=== PATIENT | male | born 1960 | race Caucasian/White ===

== ENCOUNTER 2019-07-18 11:50 | Emergency (ER) | payer BC ==
[2019-07-18 12:05] VITALS: O2SAT 98
[2019-07-18] MEDS ORDERED: Sodium Chloride 0.9% 1000 ML 1,000 ML IV STA (12:20)
[2019-07-18] MEDS ORDERED: Sodium Chloride 0.9% 1000 ML 1,000 ML ONE ×2 (12:28→12:31)
[2019-07-18 12:37] LABS: Absolute Neutrophil Ct (ANC) 8.16 (1.4-6.9); BASOPHIL % 0.2 % (0.0-0.4); Basophil (Absolute #) 0.02 (0-0.4); Eosinophil % 0.3 % (0.00-5.0); Eosinophil (Absolute #) 0.03 (0-0.5); Hematocrit 49.6 % (42-50); Hemoglobin 17.3 gm/dl (12.5-18.0); Lymphocyte (Absolute #) 1.95 (1.0-4.6); Lymphocytes % 18.2 % (24.0-44.0); Mean Cell Volume 96.7 fl (78-100); Mean Corpuscular Hemoglobin 33.7 pg (26-32); Mean Corpuscular Hgb Concent. 34.9 g/dl (32-36); Mean Platelet Volume 10.4 fl (6-9.5); Monocyte (Absolute #) 0.54 (0.0-1.3); Neutrophil % 76.3 % (36.0-66.0); Platelet Count 222 K/mm3 (150-450); Red Blood Count 5.13 M/mm3 (4.1-5.6); Red Cell Distribution Width 12.9 % (11.5-14.0); White Blood Count 10.7 K/mm3 (4.0-10.5)
[2019-07-18 12:50] LABS: ALBUMIN 4.8 g/dL (3.5-5.0); ALKALINE PHOSPHATASE 50 U/L (38-126); ANION GAP 16.7 MEQ/L (5-15); BLOOD UREA NITROGEN 13 mg/dL (9-20); CHLORIDE 104 mmol/L (98-107); Calcium 9.9 mg/dL (8.4-10.2); Carbon Dioxide 23 mmol/L (22-30); Creatinine 1 0.76 mg/dL (0.66-1.25); Glucose 118 mg/dL (74-106); SGOT/AST 26 U/L (17-59); SGPT/ALT 24 U/L (0-50); SODIUM 139 mmol/L (137-145)
--- NOTE | 2019-07-18 13:38 | ERPHSYRPT ---
- History of Present Illness Time Seen by Provider: 07/18/19 12:20 Source: patient, family Exam Limitations: no limitations Patient Subjective Stated Complaint: HERE FOR RINGING IN EARS, LIGHTHEAEDED, PRESSURE IN EARS FOR 3 DAYS NO, HE THINKS HES B/P WAS HIGH AND TOOK ONE OF HES WIFES B/P PILLS Triage Nursing Assessment: PT WALKED IN ALERT, RESP EASY ,SKIN W/D/P. 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 He complained of a headache and dizziness which started Friday morning he had a near syncopal episode at that time he has noted vertigo he has had no nausea or vomiting he does have chronic tinnitus. Blood pressure was 174/94 his gave him one of her losartan 50s and his blood pressure was 142/86 on arrival.. Prior Episodes: no prior history Timing/Duration: day(s) (3) Precipitating Factors: none Context: standing Allergies/Adverse Reactions: No Known Drug Allergies Allergy (Unverified 07/18/19 12:09) Hx Influenza Vaccination/Date Given: No Hx Pneumococcal Vaccination/Date Given: No Immunizations Up to Date: Yes - Past Medical History Pertinent Past Medical History: No - Past Surgical History Past Surgical History: No - Social History Smoking Status: Current every day smoker Exposure to second hand smoke: Yes Drug Use: none Patient Lives Alone: No - Review of Systems Constitutional: No Fever, No Chills Eyes: No Symptoms Ears, Nose, & Throat: No Symptoms Respiratory: No Cough, No Dyspnea Cardiac: No Chest Pain, No Edema, No Syncope Abdominal/Gastrointestinal: No Abdominal Pain, No Nausea, No Vomiting, No Diarrhea Genitourinary Symptoms: No Dysuria Musculoskeletal: No Back Pain, No Neck Pain Skin: No Rash Neurological: Dizziness, Headache, Vertigo, No Focal Weakness, No Sensory Changes Psychological: No Symptoms Endocrine: No Symptoms All Other Systems: Reviewed and Negative Physical Exam - Nursing Vital Signs Nursing Vital Signs: Initial Vital Signs Temperature 97.8 F 07/18/19 11:55 Pulse Rate 110 H 07/18/19 11:55 Blood Pressure 147/86 07/18/19 11:55 O2 Sat by Pulse Oximetry 98 07/18/19 11:55 Pain Scale Pain Intensity 0 - [place] Coma Scale Best Eye Response ([place]): (4) open spontaneously Best Verbal Response ([place]): (5) oriented Best Motor Response ([place]): (6) obeys commands [place] Total: 15 - Physical Exam Eye Exam: bilateral eye: normal inspection, PERRL, EOMI Ears, Nose, Throat Exam: pharynx normal, moist mucous membranes, other ( bilateral cerumen impaction) Neck Exam: normal inspection Respiratory: normal breath sounds, lungs clear, No chest tenderness, No respiratory distress Cardiovascular: regular rate/rhythm, capillary refill <2 sec, No murmur, No pulse deficit Gastrointestinal: soft, No tenderness, No distention, No mass Back Exam: normal inspection, normal range of motion, No CVA tenderness, No vertebral tenderness Extremity Exam: normal inspection, normal range of motion, pelvis stable, No tenderness Peripheral Pulses: carotid (R): 2+, carotid (L): 2+ 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, 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, 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 Exam: No normal hearing (patient has bilateral cerumen impaction) DTR: knee (R): 2+, knee (L): 2+ Skin Exam: normal color, warm, dry SpO2 Interpretation: normal SpO2: 98 O2 Delivery: Room Air - Course Nursing assessment & vital signs reviewed: Yes EKG Interpreted by Me: RATE, Sinus Rhythm, Sinus Tach (105), Non-specific ST Changes - Radiology Exams Chest X-ray Interpretation: Interpreted by me, Negative - CT Exams Head CT Interpretation: Negative Ordered Tests: Active Orders 24 hr Category Date Time Status EKG-ER Only STAT Care 07/18/19 12:20 Active IV Insertion STAT Care 07/18/19 12:20 Active Orthostatic Vital Signs STAT Care 07/18/19 12:20 Active CHEST 1 VIEW (PORTABLE) Stat Exams 07/18/19 12:21 Taken HEAD WITHOUT CONTRAST [CT] Stat Exams 07/18/19 12:23 Taken CBC W DIFF Stat Lab 07/18/19 12:30 Completed CMP Stat Lab 07/18/19 12:30 Completed TROPONIN Q3H Lab 07/18/19 12:30 Completed TROPONIN Q3H Lab 07/18/19 15:30 Ordered TROPONIN Q3H Lab 07/18/19 18:30 Ordered TROPONIN Q3H Lab 07/18/19 21:30 Ordered TROPONIN Q3H Lab 07/19/19 00:30 Ordered UA W/RFX UR CULTURE Stat Lab 07/18/19 12:21 Ordered Medication Summary Discontinued Medications Generic Name Dose Route Start Last Admin Trade Name Neli PRN Reason Stop Dose Admin Sodium Chloride 1,000 mls @ 999 mls/hr 07/18/19 12:20 07/18/19 12:35 Sodium Chloride 0.9% 1000 Ml IV 07/18/19 13:20 999 mls/hr .Q1H1M STA Administration Sodium Chloride Confirm 07/18/19 12:28 Sodium Chloride 0.9% 1000 Ml Administered 07/18/19 12:29 Dose 1,000 mls @ ud .ROUTE .STK-MED ONE Sodium Chloride Confirm 07/18/19 12:31 Sodium Chloride 0.9% 1000 Ml Administered 07/18/19 12:32 Dose 1,000 mls @ ud .ROUTE .STK-MED ONE Lab/Rad Data: Laboratory Result Diagrams 07/18/19 12:30 07/18/19 12:30 Laboratory Results 07/18/19 07/18/19 07/18/19 Range/Units 12:30 12:30 12:30 WBC 10.7 H (4.0-10.5) K/mm3 RBC 5.13 (4.1-5.6) M/mm3 Hgb 17.3 (12.5-18.0) gm/dl Hct 49.6 (42-50) % MCV 96.7 (78-100) fl MCH 33.7 H (26-32) pg MCHC 34.9 (32-36) g/dl RDW 12.9 (11.5-14.0) % Plt Count 222 (150-450) K/mm3 MPV 10.4 H (6-9.5) fl Gran % 76.3 H (36.0-66.0) % Eos # (Auto) 0.03 (0-0.5) Absolute Lymphs (auto) 1.95 (1.0-4.6) Absolute Monos (auto) 0.54 (0.0-1.3) Lymphocytes % 18.2 L (24.0-44.0) % Monocytes % 5.0 (0.0-12.0) % Eosinophils % 0.3 (0.00-5.0) % Basophils % 0.2 (0.0-0.4) % Absolute Granulocytes 8.16 H (1.4-6.9) Basophils # 0.02 (0-0.4) Sodium 139 (137-145) mmol/L Potassium 4.0 (3.5-5.1) mmol/L Chloride 104 (98-107) mmol/L Carbon Dioxide 23 (22-30) mmol/L Anion Gap 16.7 H (5-15) MEQ/L BUN 13 (9-20) mg/dL Creatinine 0.76 (0.66-1.25) mg/dL Estimated GFR > 60.0 ML/MIN Glucose 118 H (74-106) mg/dL Calcium 9.9 (8.4-10.2) mg/dL Total Bilirubin 0.90 (0.2-1.3) mg/dL AST 26 (17-59) U/L ALT 24 (0-50) U/L Alkaline Phosphatase 50 (38-126) U/L Troponin I < 0.012 (0.000-0.034) ng/mL Serum Total Protein 8.0 (6.3-8.2) g/dL Albumin 4.8 (3.5-5.0) g/dL - Progress Progress: unchanged - Departure Departure Disposition: Home Clinical Impression: Labyrinthitis, Hypertension Condition: Stable Critical Care Time: No Referrals: CHRISTINE INIGUEZ MD [Primary Care Provider] - Additional Instructions: patient instructed to get Cerumenex to soften up his ear wax and then see his family doctor for irrigation. Prescriptions: Losartan Potassium 50 mg [Cozaar 50 MG] 50 mg PO DAILY 30 Days #30 tablet Meclizine HCl 25 mg [Antivert 25 mg] 25 mg PO TID 5 Days #15 tablet
[2019-07-18 13:43] VITALS: BP 135/87; PULSE 85
--- NOTE | 2019-07-18 21:13 | XRAY ---
Indication: Dizziness. Comparison: None Portable apical lordotic chest clear with incidental tiny right midlung calcified granuloma. Heart is not enlarged with tiny subcarinal calcified node. Bony thorax intact. Impression: Nonacute chest. Evidence for old granulomatous disease.
--- NOTE | 2019-07-18 21:13 | XRAY ---
Indication: Dizziness. Multiple contiguous axial images obtained through the head without contrast. Comparison: None. Normal appearing brain parenchyma, ventricles, and bony calvarium. Tiny right ethmoid sinus osteoma. Remaining visualized paranasal sinuses and mastoid air cells are clear. Impression: Normal CT head without contrast exam. Comment: Preliminary interpretation was made by [facility]. No critical discrepancy. CTDI 55.08
== END 2019-07-18 14:15 | disposition home or self-care (01) ==
LOC: ED 11:50
DX: H83.09 Labyrinthitis, unspecified ear (principal); I10 Essential (primary) hypertension
CPT/HCPCS: 36000; 36415; 70450; 71045; 80053; 84484; 85025; 93005; 96360; 99284

== ENCOUNTER 2020-07-14 15:19 | Emergency (ER) | payer BC ==
[2020-07-14 15:53] LABS: Absolute Neutrophil Ct (ANC) 5.64 (1.4-6.9); BASOPHIL % 0.1 % (0.0-0.4); Basophil (Absolute #) 0.01 (0-0.4); Eosinophil % 0.8 % (0.00-5.0); Eosinophil (Absolute #) 0.07 (0-0.5); Hematocrit 50.4 % (42-50); Hemoglobin 17.6 gm/dl (12.5-18.0); Lymphocytes % 30.3 % (24.0-44.0); Mean Cell Volume 96.9 fl (78-100); Mean Corpuscular Hemoglobin 33.8 pg (26-32); Mean Corpuscular Hgb Concent. 34.9 g/dl (32-36); Mean Platelet Volume 10.1 fl (7.5-11.0); Monocyte (Absolute #) 0.71 (0.0-1.3); Monocytes % 7.7 % (0.0-12.0); Neutrophil % 61.1 % (36.0-66.0); Platelet Count 254 K/mm3 (150-450); Red Cell Distribution Width 12.7 % (11.5-14.0); White Blood Count 9.2 K/mm3 (4.0-10.5)
[2020-07-14 16:10] LABS: ALBUMIN 4.9 g/dL (3.5-5.0); ALKALINE PHOSPHATASE 55 U/L (38-126); ANION GAP 15.3 MEQ/L (5-15); BLOOD UREA NITROGEN 13 mg/dL (9-20); CHLORIDE 104 mmol/L (98-107); Calcium 9.8 mg/dL (8.4-10.2); Carbon Dioxide 22 mmol/L (22-30); Creatinine 1 0.83 mg/dL (0.66-1.25); EST GLOMERULAR FILTRATION RATE > 60.0 ML/MIN; Glucose 128 mg/dL (74-106); Potassium 4.1 mmol/L (3.5-5.1); SGOT/AST 27 U/L (17-59); SGPT/ALT 27 U/L (0-50); SODIUM 137 mmol/L (137-145)
--- NOTE | 2020-07-14 16:27 | ERPHSYRPT ---
- History of Present Illness Time Seen by Provider: 07/14/20 15:30 Source: patient, family Exam Limitations: no limitations Patient Subjective Stated Complaint: " I have been dizzy and lightheaded since Friday and it's not getting any better. I had the same issue last year and it was because I had fluid in my ears." Triage Nursing Assessment: Pt presents to ER with complaints of dizziness and lightheadedness. Pt is alert and oriented x3 able to ambulate without difficulty. States symptoms started on Friday and hasn't got any better. Pt denies headache, nausea, vomiting, diarrhea, shortness of breath, cough, or any pain. Pt skin is pink, warm, and dry. Ears appear waxy. PERRL. Stregth and pulses present x 4 extremtiites. No facial droop or slurred speech. Physician History: This is a 60-year-old white male who presents with recurrent dizziness. He states he has had worsening dizziness since Friday prior to this evaluation. Patient had a similar episode approximately 1 year ago and was found to have fluid behind his ears per his report. Patient does occasionally drink alcohol and smokes cigarettes. He denies any other drug use. Patient denies myalgias and arthralgias. He denies chest pain. He denies shortness of breath. He has no abdominal pain he has no nausea vomiting or diarrhea. Patient was on Antivert and that seemed to help his dizziness. He is out of Antivert. Has chronic tinnitus Timing/Duration: day(s) (2) Severity: mild Character of Deficits: none Deficits: no difficulties Baseline/Normal Cognition: alert 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 Current Cognition: alert 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 Baseline Gait: walks w/o assistance Associated Symptoms: ringing in ears (Chronic tinnitus) Allergies/Adverse Reactions: No Known Drug Allergies Allergy (Verified 07/14/20 15:40) Hx Tetanus, Diphtheria Vaccination/Date Given: Yes Hx Influenza Vaccination/Date Given: Yes Hx Pneumococcal Vaccination/Date Given: Yes Immunizations Up to Date: Yes Travel Risk - International Travel Have you traveled outside of the country in past 3 weeks: No - Coronavirus Screening Are you exhibiting any of the following symptoms?: No Close contact with a COVID-19 positive Pt in past 14-21 Days: No - Review of Systems Constitutional: No Symptoms Eyes: No Symptoms Ears, Nose, & Throat: No Symptoms Respiratory: No Symptoms Cardiac: No Symptoms Abdominal/Gastrointestinal: No Symptoms Genitourinary Symptoms: No Symptoms Musculoskeletal: No Symptoms Skin: No Symptoms Neurological: Dizziness Psychological: No Symptoms Endocrine: No Symptoms Hematologic/Lymphatic: No Symptoms Immunological/Allergic: No Symptoms All Other Systems: Reviewed and Negative - Past Medical History Pertinent Past Medical History: No Neurological History: No Pertinent History ENT History: No Pertinent History Cardiac History: No Pertinent History Respiratory History: No Pertinent History Endocrine Medical History: No Pertinent History Musculoskeletal History: No Pertinent History GI Medical History: No Pertinent History History: No Pertinent History Psycho-Social History: No Pertinent History Male Reproductive Disorders: No Pertinent History - Past Surgical History Past Surgical History: No Neuro Surgical History: No Pertinent History Cardiac: No Pertinent History Respiratory: No Pertinent History Gastrointestinal: No Pertinent History Genitourinary: No Pertinent History Musculoskeletal: No Pertinent History Male Surgical History: No Pertinent History - Social History Smoking Status: Never smoker Exposure to second hand smoke: No Drug Use: none Patient Lives Alone: No - Nursing Vital Signs Nursing Vital Signs: Initial Vital Signs Temperature 97.7 F 07/14/20 15:30 Pulse Rate 89 07/14/20 15:30 Respiratory Rate 18 07/14/20 15:30 Blood Pressure 156/92 07/14/20 15:30 O2 Sat by Pulse Oximetry 95 07/14/20 15:30 Pain Scale Pain Intensity 0 - [place] Coma Scale Best Eye Response ([place]): (4) open spontaneously Best Verbal Response ([place]): (5) oriented Best Motor Response ([place]): (6) obeys commands [place] Total: 15 - Physical Exam General Appearance: no apparent distress, alert, anxiety Eye Exam: bilateral eye: normal inspection, PERRL, EOMI Ears, Nose, Throat Exam: TMs normal, other (There is a significant amount of cerumen in bilateral ear canals. 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, 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, 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: normal hearing, normal speech, PERRL Coordination/Gait: normal finger to nose, normal gait Motor/Sensory: no motor deficit, no sensory deficit Skin Exam: normal color, warm, dry SpO2 Interpretation: normal SpO2: 98 O2 Delivery: Room Air - Course Nursing assessment & vital signs reviewed: Yes EKG Interpreted by Me: RATE (87), Sinus Rhythm, NORMAL AXIS, NORMAL INTERVALS, NORMAL QRS, NORMAL ST-T, Other (No ischemic changes) Ordered Tests: Active Orders 24 hr Category Date Time Status 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 Care 07/14/20 15:45 Active EKG-ER Only STAT Care 07/14/20 15:44 Active IV Insertion STAT Care 07/14/20 15:44 Active Pulse Oximetry (ED) STAT Care 07/14/20 15:44 Active HEAD WITHOUT CONTRAST [CT] Stat Exams 07/14/20 15:46 Taken CBC W DIFF Stat Lab 07/14/20 15:07 Completed CMP Stat Lab 07/14/20 15:07 Completed TROPONIN Q3H Lab 07/14/20 15:07 Completed TROPONIN Q3H Lab 07/14/20 19:00 Ordered TROPONIN Q3H Lab 07/14/20 22:00 Ordered TROPONIN Q3H Lab 07/15/20 01:00 Ordered TROPONIN Q3H Lab 07/15/20 04:00 Ordered UA W/RFX UR CULTURE Stat Lab 07/14/20 15:07 Completed Lab/Rad Data: Laboratory Result Diagrams 07/14/20 15:07 07/14/20 15:07 Laboratory Results 07/14/20 07/14/20 07/14/20 Range/Units 15:07 15:07 15:07 WBC (4.0-10.5) K/mm3 RBC (4.1-5.6) M/mm3 Hgb (12.5-18.0) gm/dl Hct (42-50) % MCV (78-100) fl MCH (26-32) pg MCHC (32-36) g/dl RDW (11.5-14.0) % Plt Count (150-450) K/mm3 MPV (7.5-11.0) fl Gran % (36.0-66.0) % Eos # (Auto) (0-0.5) Absolute Lymphs (auto) (1.0-4.6) Absolute Monos (auto) (0.0-1.3) Lymphocytes % (24.0-44.0) % Monocytes % (0.0-12.0) % Eosinophils % (0.00-5.0) % Basophils % (0.0-0.4) % Absolute Granulocytes (1.4-6.9) Basophils # (0-0.4) Sodium 137 (137-145) mmol/L Potassium 4.1 (3.5-5.1) mmol/L Chloride 104 (98-107) mmol/L Carbon Dioxide 22 (22-30) mmol/L Anion Gap 15.3 H (5-15) MEQ/L BUN 13 (9-20) mg/dL Creatinine 0.83 (0.66-1.25) mg/dL Estimated GFR > 60.0 ML/MIN Glucose 128 H (74-106) mg/dL Calcium 9.8 (8.4-10.2) mg/dL Total Bilirubin 1.10 (0.2-1.3) mg/dL AST 27 (17-59) U/L ALT 27 (0-50) U/L Alkaline Phosphatase 55 (38-126) U/L Troponin I < 0.012 (0.000-0.034) ng/mL Serum Total Protein 8.0 (6.3-8.2) g/dL Albumin 4.9 (3.5-5.0) g/dL Urine Color YELLOW (YELLOW) Urine Appearance CLEAR (CLEAR) Urine pH 6.0 (5-6) Ur Specific [place] 1.005 (1.005-1.025) Urine Protein NEGATIVE (Negative) Urine Ketones TRACE (NEGATIVE) Urine Blood SMALL (0-5) [place]/ul Urine Nitrite NEGATIVE (NEGATIVE) Urine Bilirubin NEGATIVE (NEGATIVE) Urine Urobilinogen NEGATIVE (0-1) mg/dL Ur Leukocyte Esterase NEGATIVE (NEGATIVE) Urine WBC (Auto) NONE (0-5) /HPF Urine RBC (Auto) NONE (0-2) /HPF U Epithel Cells (Auto) NONE (FEW) /HPF Urine Bacteria (Auto) NONE SEEN (NEGATIVE) /HPF Urine Culture Reflexed NO (NO) Urine Glucose NEGATIVE (NEGATIVE) mg/dL 07/14/20 Range/Units 15:07 WBC 9.2 (4.0-10.5) K/mm3 RBC 5.20 (4.1-5.6) M/mm3 Hgb 17.6 (12.5-18.0) gm/dl Hct 50.4 H (42-50) % MCV 96.9 (78-100) fl MCH 33.8 H (26-32) pg MCHC 34.9 (32-36) g/dl RDW 12.7 (11.5-14.0) % Plt Count 254 (150-450) K/mm3 MPV 10.1 (7.5-11.0) fl Gran % 61.1 (36.0-66.0) % Eos # (Auto) 0.07 (0-0.5) Absolute Lymphs (auto) 2.80 (1.0-4.6) Absolute Monos (auto) 0.71 (0.0-1.3) Lymphocytes % 30.3 (24.0-44.0) % Monocytes % 7.7 (0.0-12.0) % Eosinophils % 0.8 (0.00-5.0) % Basophils % 0.1 (0.0-0.4) % Absolute Granulocytes 5.64 (1.4-6.9) Basophils # 0.01 (0-0.4) Sodium (137-145) mmol/L Potassium (3.5-5.1) mmol/L Chloride (98-107) mmol/L Carbon Dioxide (22-30) mmol/L Anion Gap (5-15) MEQ/L BUN (9-20) mg/dL Creatinine (0.66-1.25) mg/dL Estimated GFR ML/MIN Glucose (74-106) mg/dL Calcium (8.4-10.2) mg/dL Total Bilirubin (0.2-1.3) mg/dL AST (17-59) U/L ALT (0-50) U/L Alkaline Phosphatase (38-126) U/L Troponin I (0.000-0.034) ng/mL Serum Total Protein (6.3-8.2) g/dL Albumin (3.5-5.0) g/dL Urine Color (YELLOW) Urine Appearance (CLEAR) Urine pH (5-6) Ur Specific [place] (1.005-1.025) Urine Protein (Negative) Urine Ketones (NEGATIVE) Urine Blood (0-5) [place]/ul Urine Nitrite (NEGATIVE) Urine Bilirubin (NEGATIVE) Urine Urobilinogen (0-1) mg/dL Ur Leukocyte Esterase (NEGATIVE) Urine WBC (Auto) (0-5) /HPF Urine RBC (Auto) (0-2) /HPF U Epithel Cells (Auto) (FEW) /HPF Urine Bacteria (Auto) (NEGATIVE) /HPF Urine Culture Reflexed (NO) Urine Glucose (NEGATIVE) mg/dL - Progress Progress: improved, re-examined Progress Note: 07/14/20 16:46 CAT scan of the head without contrast reveals no acute intracranial pathology. Counseled pt/family regarding: diagnosis, need for follow-up, rad results - Departure Departure Disposition: Home Clinical Impression: Hypertension, Dizziness, Excessive cerumen in both ear canals, Noncompliance with medication regimen Condition: Stable Critical Care Time: No Referrals: CHRISTINE INIGUEZ MD [Primary Care Provider] - Additional Instructions: Take your blood pressure medication as prescribed. Fill your Antivert prescription. Use [id number] Cerumenex or Debrox to clean out wax from your ear canals. Follow-up with your prescribing physician for further management Prescriptions: Meclizine HCl 25 mg [Antivert 25 mg] 25 mg PO Q8H PRN #10 tablet PRN Reason: Dizziness
[2020-07-14 17:56] LABS: Appearance CLEAR (CLEAR); Bacteria NONE SEEN /HPF (NEGATIVE); Bilirubin NEGATIVE (NEGATIVE); Blood SMALL Ery/ul (0-5); Glucose NEGATIVE (NEGATIVE); Ketones TRACE (NEGATIVE); Leukocyte Esterase NEGATIVE (NEGATIVE); Nitrite NEGATIVE (NEGATIVE); Protein,Urine Dip NEGATIVE (Negative); Specific Gravity 1.005 (1.005-1.025); Urobilinogen NEGATIVE mg/dL (0-1)
[2020-07-14 18:15] VITALS: BP 170/99; PULSE 97; O2SAT 97
--- NOTE | 2020-07-14 19:28 | XRAY ---
Indication: Dizziness. Multiple contiguous axial images obtained through the head without contrast as ordered. Comparison: July 18, 2019. Normal appearing brain parenchyma, ventricles, and bony calvarium. Visualized paranasal sinuses are clear. Partial opacification of both inferior mastoid air cells presumed inflammatory. Impression: 1. Partial opacification both mastoid air cells presumed inflammatory. 2. Remaining CT head without contrast exam is negative. Comment: Preliminary interpretation was made by [facility]. No critical discrepancy.
== END 2020-07-14 18:16 | disposition home or self-care (01) ==
LOC: ED 15:19
DX: I10 Essential (primary) hypertension (principal); R42 Dizziness and giddiness; H61.23 Impacted cerumen, bilateral; Z91.14 Patient's other noncompliance with medication regimen
CPT/HCPCS: 36000; 36415; 70450; 80053; 81001; 84484; 85025; 93005; 93041; 94760; 99284

== ENCOUNTER 2020-09-05 09:55 | Emergency (ER) | payer BC ==
--- NOTE | 2020-09-05 10:32 | ERPHSYRPT ---
- History of Present Illness Source: patient Exam Limitations: no limitations Patient Subjective Stated Complaint: Pt c/o of dizziness in his head and tingling in his fingers and the top of his head, weak and tired, ears ringing Triage Nursing Assessment: Pt drove self to the ER, hypertensive, denies pain, pulses normal, reports that the symptoms come and go, he was at this ER over a month or go for the same symptoms, skin n/w/d, no edema, denies headache, denies n&v, doesn't appear to be in any distress Physician History: The patient is a 60-year-old male who presents with multiple complaints to include lightheadedness and cough and cold symptoms. He endorsed feeling dizzy as well which has been present off and on for the last couple of months. His dizziness seems to be triggered with movements of his head, specifically going from a lying position in bed to standing. He has been told that he has had vertigo in the past and sounds like he has been prescribed meclizine which he currently has not been taking because he has been out of this medication. He has been attributing the symptoms to his blood pressure. He also reportedly started to experience cough and cold symptoms and sweating in his palms and went to an outpatient clinic yesterday and was tested for Covid and was negative. Sided to come to the emergency department today because while getting out of his truck he felt lightheaded and felt some numbness at the top of his head. He also endorsed having some numbness in his fingers but this happened yesterday and has been an ongoing problem the sound like for the last 1 to 2 months. He did not have any paresthesias or numbness today or any numbness at the top of his head today. He denies shortness of breath, chest pain, nausea, vomiting, focal weakness or numbness. Currently asymptomatic. Allergies/Adverse Reactions: No Known Drug Allergies Allergy (Verified 09/05/20 10:13) Hx Tetanus, Diphtheria Vaccination/Date Given: Yes Hx Influenza Vaccination/Date Given: Yes Hx Pneumococcal Vaccination/Date Given: Yes Travel Risk - International Travel Have you traveled outside of the country in past 3 weeks: No - Coronavirus Screening Are you exhibiting any of the following symptoms?: No Close contact with a COVID-19 positive Pt in past 14-21 Days: No - Review of Systems Constitutional: No Fever, No Chills Eyes: No Symptoms Ears, Nose, & Throat: No Symptoms Respiratory: No Cough, No Cyanosis, No Dyspnea, No Dyspnea on Exertion (PRO) Neurological: Dizziness, Vertigo, No Focal Weakness, No Headache Psychological: Anxiety All Other Systems: Reviewed and Negative - Past Medical History Pertinent Past Medical History: No Neurological History: No Pertinent History ENT History: No Pertinent History Cardiac History: No Pertinent History Respiratory History: No Pertinent History Endocrine Medical History: No Pertinent History Musculoskeletal History: No Pertinent History GI Medical History: No Pertinent History History: No Pertinent History Psycho-Social History: No Pertinent History Male Reproductive Disorders: No Pertinent History - Past Surgical History Past Surgical History: No Neuro Surgical History: No Pertinent History Cardiac: No Pertinent History Respiratory: No Pertinent History Gastrointestinal: No Pertinent History Genitourinary: No Pertinent History Musculoskeletal: No Pertinent History Male Surgical History: No Pertinent History - Social History Smoking Status: Current every day smoker Exposure to second hand smoke: Yes Drug Use: none Patient Lives Alone: No - Nursing Vital Signs Nursing Vital Signs: Initial Vital Signs Temperature 97.2 F 09/05/20 09:58 Pulse Rate 86 09/05/20 09:58 Respiratory Rate 22 09/05/20 09:58 Blood Pressure 153/114 09/05/20 09:58 O2 Sat by Pulse Oximetry 99 09/05/20 09:58 Pain Scale Pain Intensity 0 - Physical Exam General Appearance: no apparent distress, obese Eye Exam: PERRL/EOMI Ears, Nose, Throat Exam: normal ENT inspection Neck Exam: normal inspection, non-tender, supple Respiratory Exam: normal breath sounds, lungs clear, No chest tenderness, No respiratory distress Cardiovascular Exam: regular rate/rhythm, normal heart sounds, capillary refill <2 sec, No murmur, No friction rub, No gallop Back Exam: normal inspection Extremity Exam: normal inspection, other (It Administrator strength 4+ bilaterally, bicep flexion and tricep extension 4+, dorsiflexion and plantar flexion 4+), No swelling, No tenderness Neurologic Exam: alert, 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, prescription benefit specialist II-XII nml as tested, abnormal prescription benefit specialist II- XII, EOM palsy, other (normal heel to griffin, no pronator drift, no dysmetria, no dysdiadochokinesia), No motor deficits, No sensory deficit, No intoxicated appearance, No motor weakness, No facial droop, No slurred speech, No aphasia, No abnormal cerebellar tests Skin Exam: normal color, warm, dry SpO2: 99 O2 Delivery: Room Air - Course Nursing assessment & vital signs reviewed: Yes EKG Interpreted by Me: RATE, Sinus Rhythm, NORMAL AXIS, NORMAL INTERVALS, NORMAL QRS, NORMAL ST-T Ordered Tests: Active Orders 24 hr Category Date Time Status Consumer Marketing Analyst STAT Care 09/05/20 10:31 Completed EKG-ER Only STAT Care 09/05/20 10:30 Completed IV Insertion STAT Care 09/05/20 10:30 Completed BMP Stat Lab 09/05/20 10:10 Completed CBC W DIFF Stat Lab 09/05/20 10:10 Completed TROPONIN Q3H Lab 09/05/20 10:10 Completed TROPONIN Q3H Lab 09/05/20 13:45 Ordered TROPONIN Q3H Lab 09/05/20 16:45 Ordered TROPONIN Q3H Lab 09/05/20 19:45 Ordered TROPONIN Q3H Lab 09/05/20 22:45 Ordered Lab/Rad Data: Laboratory Result Diagrams 09/05/20 10:10 09/05/20 10:10 Laboratory Results 09/05/20 09/05/20 09/05/20 Range/Units 10:10 10:10 10:10 WBC 8.5 (4.0-10.5) K/mm3 RBC 5.15 (4.1-5.6) M/mm3 Hgb 16.9 (12.5-18.0) gm/dl Hct 50.3 H (42-50) % MCV 97.7 (78-100) fl MCH 32.8 H (26-32) pg MCHC 33.6 (32-36) g/dl RDW 12.9 (11.5-14.0) % Plt Count 271 (150-450) K/mm3 MPV 10.2 (7.5-11.0) fl Gran % 55.6 (36.0-66.0) % Eos # (Auto) 0.04 (0-0.5) Absolute Lymphs (auto) 3.00 (1.0-4.6) Absolute Monos (auto) 0.71 (0.0-1.3) Lymphocytes % 35.3 (24.0-44.0) % Monocytes % 8.4 (0.0-12.0) % Eosinophils % 0.5 (0.00-5.0) % Basophils % 0.2 (0.0-0.4) % Absolute Granulocytes 4.73 (1.4-6.9) Basophils # 0.02 (0-0.4) Sodium 138 (137-145) mmol/L Potassium 4.4 (3.5-5.1) mmol/L Chloride 104 (98-107) mmol/L Carbon Dioxide 21 L (22-30) mmol/L Anion Gap 17.0 H (5-15) MEQ/L BUN 13 (9-20) mg/dL Creatinine 0.82 (0.66-1.25) mg/dL Estimated GFR > 60.0 ML/MIN Glucose 120 H (74-106) mg/dL Calcium 10.2 (8.4-10.2) mg/dL Troponin I < 0.012 (0.000-0.034) ng/mL - Progress Progress: unchanged Progress Note: 09/05/20 10:53 I reviewed the patient's EMR and it appears she had a head CT for similar complaint and June 2020 which was relatively benign with the exception of some possible opacification of his mastoid air cells which I believe to be an overcall. 09/05/20 13:21 Nontoxic in appearance. Currently, the patient is asymptomatic at this time. His neuro exam is benign currently have a low suspicion for TIA or CVA therefore neurocranial imaging was deferred especially since his most recent head CT back in June in which he presented with similar symptoms was within normal limits. I do not feel the patient needs an MRI of his brain at this time. His laboratory work-up was relatively benign with the exception of a mildly decreased serum bicarb which could be secondary to dehydration given his recent URI symptoms. Currently the low suspicion for Covid and he had no additional respiratory symptoms such as shortness of breath and had no hypoxia on my exam or appeared to be in obvious respiratory distress and therefore chest x-ray was deferred. He seemed to be fixated on his elevated blood pressure which I do not feel to be consistent with a hypertensive emergency or urgency at this time. He has no evidence of endorgan failure. I believe this can be monitored and if needed treated as an outpatient by his primary care provider which I discussed this with the patient and arranged outpatient follow-up to occur this coming Friday at 3 PM. In the meantime, the patient was instructed to monitor his blood pressure at home, specifically in the morning upon awaking need to make a log to bring to his primary care provider visit. He agreed with and verbally understood the discharge plan. Discussed with Dr.: Other (Dr. Galaviz' office was contacted and scheduled a follow-up appointment for 09/11/20 at 3:00 pm) Counseled pt/family regarding: lab results, diagnosis, need for follow-up - Departure Departure Disposition: Home Clinical Impression: Light-headed feeling, Elevated blood pressure reading Condition: Stable Critical Care Time: No Referrals: CHRISTINE GALAVIZ MD [Primary Care Provider] - Instructions: Vertigo (a Type of Dizziness) (DC), Checking Your Blood Pressure at Home, How to Keep Track of Your Heart Rate and Blood Pressure, Lowering Your Risk of High Blood Pressure Additional Instructions: Please follow-up with Dr. Galaviz, your primary care provider, to have your blood pressure rechecked as an outpatient. In the meantime, please try to measure your blood pressure reading at home first thing in the morning and keep a log to bring with you to your primary care visit. You have been scheduled for a follow-up appointment on 09/11/20 at 3:00 pm. Prescriptions: Meclizine HCl 25 mg [Antivert 25 mg] 25 mg PO Q6-8HPRN PRN #30 tablet PRN Reason: Dizziness
[2020-09-05 10:46] LABS: Absolute Neutrophil Ct (ANC) 4.73 (1.4-6.9); BASOPHIL % 0.2 % (0.0-0.4); Basophil (Absolute #) 0.02 (0-0.4); Eosinophil % 0.5 % (0.00-5.0); Eosinophil (Absolute #) 0.04 (0-0.5); Hematocrit 50.3 % (42-50); Hemoglobin 16.9 gm/dl (12.5-18.0); Lymphocytes % 35.3 % (24.0-44.0); Mean Cell Volume 97.7 fl (78-100); Mean Corpuscular Hemoglobin 32.8 pg (26-32); Mean Corpuscular Hgb Concent. 33.6 g/dl (32-36); Mean Platelet Volume 10.2 fl (7.5-11.0); Monocyte (Absolute #) 0.71 (0.0-1.3); Monocytes % 8.4 % (0.0-12.0); Neutrophil % 55.6 % (36.0-66.0); Platelet Count 271 K/mm3 (150-450); Red Blood Count 5.15 M/mm3 (4.1-5.6); Red Cell Distribution Width 12.9 % (11.5-14.0); White Blood Count 8.5 K/mm3 (4.0-10.5)
[2020-09-05 10:59] LABS: BLOOD UREA NITROGEN 13 mg/dL (9-20); CHLORIDE 104 mmol/L (98-107); Calcium 10.2 mg/dL (8.4-10.2); Carbon Dioxide 21 mmol/L (22-30); Creatinine 1 0.82 mg/dL (0.66-1.25); EST GLOMERULAR FILTRATION RATE > 60.0 ML/MIN; Glucose 120 mg/dL (74-106); Potassium 4.4 mmol/L (3.5-5.1); SODIUM 138 mmol/L (137-145)
[2020-09-05 11:49] VITALS: BP 133/89; PULSE 91
[2020-09-05 13:23] VITALS: O2SAT 99
== END 2020-09-05 11:49 | disposition home or self-care (01) ==
LOC: ED 09:55
DX: R42 Dizziness and giddiness (principal); I10 Essential (primary) hypertension; R53.83 Other fatigue; F17.200 Nicotine dependence, unspecified, uncomplicated
CPT/HCPCS: 36000; 36415; 80048; 84484; 85025; 93005; 93041; 99284

== ENCOUNTER 2022-08-16 15:49 | Emergency (ER) | payer BC ==
[2022-08-16] MEDS ORDERED: BABY ASPIRIN 81 MG CHEW PO ONE (15:59)
[2022-08-16 16:11] LABS: Absolute Neutrophil Ct (ANC) 10.52 x10^3/uL (1.4-6.9); Basophil (Absolute #) 0.05 x10^3/uL (0-0.4); Eosinophil (Absolute #) 0 x10^3/uL (0-0.5); Hematocrit 48.2 % (42-50); Hemoglobin 16.8 g/dL (12.5-18.0); Lymphocyte (Absolute #) 2.27 x10^3/uL (1.0-4.6); Lymphocytes % 16.5 % (24.0-44.0); Mean Cell Volume 94.3 fL (78-100); Mean Corpuscular Hemoglobin 32.9 pg (26-32); Mean Corpuscular Hgb Concent. 34.9 g/dL (32-36); Mean Platelet Volume 9.7 fL (7.5-11.0); Monocyte (Absolute #) 0.88 x10^3/uL (0.0-1.3); Monocytes % 6.4 % (0.0-12.0); Neutrophil % 76.3 % (36.0-66.0); Platelet Count 306 x10^3/uL (150-450); Red Blood Count 5.11 x10^6/uL (4.1-5.6); Red Cell Distribution Width 12.2 % (11.5-14.0); White Blood Count 13.8 x10^3/uL (4.0-10.5)
[2022-08-16] MEDS ORDERED: BABY ASPIRIN 81 MG CHEW ONE (16:19)
--- NOTE | 2022-08-16 16:19 | XRAY ---
Indication: Chest pain. Comparison: July 18, 2019 Portable apical lordotic chest again demonstrates CT proven prominent epicardiac fat and tiny right midlung calcified granuloma. Remaining heart and lungs unremarkable. Bony thorax intact. Impression: Continued nonacute chest with chronic features.
--- NOTE | 2022-08-16 16:24 | ERPHSYRPT ---
- History of Present Illness Historian: patient, other () Exam Limitations: no limitations Patient Subjective Stated Complaint: PT states " I do not feel well. I have been coughing, I have chest pain and pain in my back. My body hurts all over." Triage Nursing Assessment: Pt presented alert and oriented X 3, skin wpd. Pt ambulates with an upright steady gait, able to speak in clear full sentences pt in no apaprent respiratory distress. Physician History: 62 yo wm w mid-sternal chest pressure x1 day. It is rated 4/10 and radiates to his inter-scapular area. Pt has had a cough x10 days and has been to [facility] x2. States that home CV19 tests negative. He has had some nausea wo vomiting/dyspnea/diaphoresis. Pt denies abdominal pain/m daiana/hematochezia/dysuria/hematuria but has had increased frequency. He has a h/o HTN/Smokes 1ppd. CAD/OH denied. Timing/Duration: other (1day) Activities at Onset: rest Quality: pressure Location: substernal Chest Pain Radiation: back Severity of Pain-Max: moderate Severity of Pain-Current: moderate Modifying Factors: Improves With: nothing Associated Symptoms: denies symptoms, nausea, cough Prior Chest Pain/Cardiac Workup: no prior chest pain Nitro Today/Relief: no nitro taken today Aspirin Treatment Today: no aspirin today Allergies/Adverse Reactions: No Known Drug Allergies Allergy (Verified 09/05/20 10:13) Home Medications: ALPRAZolam [Alprazolam] 0.5 mg PO DAILY 08/16/22 [History] Albuterol Sulfate [Albuterol Sulfate Hfa] 18 gm IH DAILY 08/16/22 [History] Amlodipine Besylate [Norvasc] 2.5 mg PO DAILY 08/16/22 [History] Hx Tetanus, Diphtheria Vaccination/Date Given: Yes Hx Influenza Vaccination/Date Given: Yes Hx Pneumococcal Vaccination/Date Given: Yes Immunizations Up to Date: Yes Travel Risk - International Travel Have you traveled outside of the country in past 3 weeks: No - Coronavirus Screening Are you exhibiting any of the following symptoms?: Yes Symptoms: Shortness of Breath Close contact with a COVID-19 positive Pt in past 14-21 Days: No - Vaccine Status Have you recieved a Covid-19 vaccination: Yes 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 - Vaccination Dates Date of 2cond Vaccination (if applicable): 2020 - Review of Systems Constitutional: No Symptoms Eyes: No Symptoms Ears, Nose, & Throat: No Symptoms Respiratory: No Symptoms, Cough Cardiac: No Symptoms, Chest Pain Abdominal/Gastrointestinal: No Symptoms, Nausea Genitourinary Symptoms: No Symptoms Musculoskeletal: No Symptoms Skin: No Symptoms Neurological: No Symptoms Psychological: No Symptoms Endocrine: No Symptoms Hematologic/Lymphatic: No Symptoms Immunological/Allergic: No Symptoms - Past Medical History Pertinent Past Medical History: Yes Neurological History: No Pertinent History ENT History: No Pertinent History Cardiac History: Hypertension Respiratory History: No Pertinent History Endocrine Medical History: No Pertinent History Musculoskeletal History: No Pertinent History GI Medical History: No Pertinent History History: No Pertinent History Psycho-Social History: No Pertinent History Male Reproductive Disorders: No Pertinent History - Past Surgical History Past Surgical History: No Neuro Surgical History: No Pertinent History Cardiac: No Pertinent History Respiratory: No Pertinent History Gastrointestinal: No Pertinent History Genitourinary: No Pertinent History Musculoskeletal: No Pertinent History Male Surgical History: No Pertinent History - Social History Smoking Status: Current every day smoker Exposure to second hand smoke: Yes Drug Use: none Patient Lives Alone: No - Nursing Vital Signs Nursing Vital Signs: Initial Vital Signs Temperature 98.7 F 08/16/22 15:51 Pulse Rate 110 H 08/16/22 15:51 Respiratory Rate 20 08/16/22 15:51 Blood Pressure 184/101 08/16/22 15:51 O2 Sat by Pulse Oximetry 99 08/16/22 15:51 Pain Scale Pain Intensity 0 Hypertensive/tachycardic - Physical Exam General Appearance: no apparent distress Eye Exam: PERRL/EOMI Ears, Nose, Throat Exam: normal ENT inspection, TMs normal, pharynx normal, moist mucous membranes Neck Exam: normal inspection, non-tender, supple, full range of motion, No meningismus, No mass, No Brudzinski, No Kernig's Respiratory Exam: airway intact, crackles/rales (Faint rales at bases B), No respiratory distress Cardiovascular Exam: regular rate/rhythm, normal heart sounds, normal peripheral pulses, capillary refill <2 sec, No murmur Gastrointestinal/Abdomen Exam: soft, normal bowel sounds, No tenderness Back Exam: normal inspection, normal range of motion, No CVA tenderness, No vertebral tenderness Extremity Exam: normal inspection, normal range of motion Neurologic Exam: alert, 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, 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, 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, normal mood/affect, nml cerebellar function, nml station & gait, sensation nml Skin Exam: normal color, warm, dry Lymphatic Exam: No adenopathy SpO2 Interpretation: normal SpO2: 99 O2 Delivery: Room Air - Course Nursing assessment & vital signs reviewed: Yes EKG Interpreted by Me: RATE (NSR/Rate 99/normal QT-QTc/Nonspecific ST-Twave changes) - Radiology Exams Chest X-ray Interpretation: Discussed w/ radiologist (Nothing acute) - CT Exams Chest CT Interpretation: Discussed w/radiologist (CTA of chest-no PE/COPD/L base atelectasis-scarring/COURTNEY) Abdomen/Pelvis CT Interpretation: Discussed w/radiologist (Nothing acute) Ordered Tests: Active Orders 24 hr Category Date Time Status EKG-ER Only STAT Care 08/16/22 15:56 Completed ABDOMEN AND PELVIS W/0 CONTRAS [CT] Stat Exams 08/16/22 19:01 Completed CHEST 1 VIEW (PORTABLE) Stat Exams 08/16/22 15:56 Completed CHEST WITH CONTRAST [CT] Stat Exams 08/16/22 17:19 Completed BLOOD CULTURE Stat Lab 08/16/22 18:00 Received CBC W DIFF Stat Lab 08/16/22 16:05 Completed CMP Stat Lab 08/16/22 16:05 Completed D-DIMER QUANTITATIVE Stat Lab 08/16/22 16:05 Completed Lactic Acid Stat Lab 08/16/22 16:22 Completed NT PRO BNP Stat Lab 08/16/22 16:05 Completed PROTIME WITH INR Stat Lab 08/16/22 16:05 Completed PTT Stat Lab 08/16/22 16:05 Completed T4 (Thyroxine) Stat Lab 08/16/22 Completed TROPONIN Q4H Lab 08/16/22 16:05 Completed TROPONIN Q4H Lab 08/16/22 18:15 Completed TSH [TSH, 3RD Generation] Stat Lab 08/16/22 18:00 Completed UA W/RFX CULTURE Stat Lab 08/16/22 16:05 Completed Medication Summary Discontinued Medications Generic Name Dose Route Start Last Admin Trade Name Freq PRN Reason Stop Dose Admin Aspirin 324 mg 08/16/22 15:59 08/16/22 16:19 Aspirin 81 Mg Tab.Chew PO 08/16/22 16:00 324 mg STAT ONE Administration Aspirin Confirm 08/16/22 16:19 Aspirin 81 Mg Tab.Chew Administered 08/16/22 16:20 Dose 324 mg .ROUTE .STK-MED ONE Ceftriaxone Sodium/Dextrose 1 g in 50 mls @ 100 mls/hr 08/16/22 20:54 08/16 21:13 Rocephin 1 Gm-D5w 50 Ml Bag IV 08/16/22 21:23 100 mls/hr STAT STA 100 mls/hr Administration Ceftriaxone Sodium/Dextrose Confirm 08/16/22 21:12 Rocephin 1 Gm-D5w 50 Ml Bag Administered 08/16/22 21:13 Dose 1 g in 50 mls @ ud IV .STK-MED ONE Lab/Rad Data: Laboratory Result Diagrams 08/16/22 16:05 08/16/22 16:05 Laboratory Results 08/16/22 08/16/22 08/16/22 Range/Units Unknown 18:15 18:00 WBC (4.0-10.5) x10^3/uL RBC (4.1-5.6) x10^6/uL Hgb (12.5-18.0) g/dL Hct (42-50) % MCV (78-100) fL MCH (26-32) pg MCHC (32-36) g/dL RDW (11.5-14.0) % Plt Count (150-450) x10^3/uL MPV (7.5-11.0) fL Gran % (36.0-66.0) % Immature Gran % (Auto) (0.00-0.4) % Nucleat RBC Rel Count (0.00-0.1) % Eos # (Auto) (0-0.5) x10^3/uL Immature Gran # (Auto) (0.00-0.03) x10^3u/L Absolute Lymphs (auto) (1.0-4.6) x10^3/uL Absolute Monos (auto) (0.0-1.3) x10^3/uL Absolute Nucleated RBC (0.00-0.01) x10^3u/L Lymphocytes % (24.0-44.0) % Monocytes % (0.0-12.0) % Eosinophils % (0.00-5.0) % Basophils % (0.0-0.4) % Absolute Granulocytes (1.4-6.9) x10^3/uL Basophils # (0-0.4) x10^3/uL PT (9.4-12.5) SECONDS INR (0.8-3.0) APTT (25.1-36.5) SECONDS D-Dimer (0.0-0.50) mg/L Sodium (137-145) mmol/L Potassium (3.5-5.1) mmol/L Chloride (98-107) mmol/L Carbon Dioxide (22-30) mmol/L Anion Gap (5-15) MEQ/L BUN (9-20) mg/dL Creatinine (0.66-1.25) mg/dL Estimated GFR ML/MIN Glucose (74-106) mg/dL Lactic Acid (0.4-2.0) Calcium (8.4-10.2) mg/dL Total Bilirubin (0.2-1.3) mg/dL AST (17-59) U/L ALT (0-50) U/L Alkaline Phosphatase (38-126) U/L Troponin I < 0.012 (0.000-0.034) ng/mL NT-Pro-B Natriuret Pep (0-900) pg/mL Serum Total Protein (6.3-8.2) g/dL Albumin (3.5-5.0) g/dL Thyroxine (T4) 11.7 H (5.53-10.96) ug/dL TSH 3rd Generation 2.810 (0.47-4.68) mIU/L Urinalys Dipstick Clnc Urine Color (YELLOW) Urine Appearance (CLEAR) Urine pH (5-6) Ur Specific Reading (1.005-1.025) POC Urine Protein Conf (Negative) Urine Ketones (NEGATIVE) Urine Nitrite (NEGATIVE) Urine Bilirubin (NEGATIVE) Urine Urobilinogen (0-1) mg/dL Urine Leukocytes (NEGATIVE) Urine WBC (Auto) (0-5) /HPF Urine RBC (Auto) (0-2) /HPF U Epithel Cells (Auto) Urine Bacteria (Auto) (NEGATIVE) /HPF Urine RBC (0-5) Harpal/ul Ur Culture Indicated? Urine Glucose (NEGATIVE) mg/dL Influenza Type A Ag (NEGATIVE) Influenza Type B Ag (NEGATIVE) RSV (PCR) (Negative) SARS-CoV-2 (PCR) (NEGATIVE) 08/16/22 08/16/22 08/16/22 Range/Units 16:22 16:07 16:05 WBC (4.0-10.5) x10^3/uL RBC (4.1-5.6) x10^6/uL Hgb (12.5-18.0) g/dL Hct (42-50) % MCV (78-100) fL MCH (26-32) pg MCHC (32-36) g/dL RDW (11.5-14.0) % Plt Count (150-450) x10^3/uL MPV (7.5-11.0) fL Gran % (36.0-66.0) % Immature Gran % (Auto) (0.00-0.4) % Nucleat RBC Rel Count (0.00-0.1) % Eos # (Auto) (0-0.5) x10^3/uL Immature Gran # (Auto) (0.00-0.03) x10^3u/L Absolute Lymphs (auto) (1.0-4.6) x10^3/uL Absolute Monos (auto) (0.0-1.3) x10^3/uL Absolute Nucleated RBC (0.00-0.01) x10^3u/L Lymphocytes % (24.0-44.0) % Monocytes % (0.0-12.0) % Eosinophils % (0.00-5.0) % Basophils % (0.0-0.4) % Absolute Granulocytes (1.4-6.9) x10^3/uL Basophils # (0-0.4) x10^3/uL PT (9.4-12.5) SECONDS INR (0.8-3.0) APTT (25.1-36.5) SECONDS D-Dimer (0.0-0.50) mg/L Sodium (137-145) mmol/L Potassium (3.5-5.1) mmol/L Chloride (98-107) mmol/L Carbon Dioxide (22-30) mmol/L Anion Gap (5-15) MEQ/L BUN (9-20) mg/dL Creatinine (0.66-1.25) mg/dL Estimated GFR ML/MIN Glucose (74-106) mg/dL Lactic Acid 1.4 (0.4-2.0) Calcium (8.4-10.2) mg/dL Total Bilirubin (0.2-1.3) mg/dL AST (17-59) U/L ALT (0-50) U/L Alkaline Phosphatase (38-126) U/L Troponin I (0.000-0.034) ng/mL NT-Pro-B Natriuret Pep (0-900) pg/mL Serum Total Protein (6.3-8.2) g/dL Albumin (3.5-5.0) g/dL Thyroxine (T4) (5.53-10.96) ug/dL TSH 3rd Generation (0.47-4.68) mIU/L Urinalys Dipstick Clnc MAIN LAB Urine Color YELLOW (YELLOW) Urine Appearance CLEAR (CLEAR) Urine pH 6.0 (5-6) Ur Specific Reading 1.010 (1.005-1.025) POC Urine Protein Conf NEGATIVE (Negative) Urine Ketones SMALL-15 A (NEGATIVE) Urine Nitrite NEGATIVE (NEGATIVE) Urine Bilirubin NEGATIVE (NEGATIVE) Urine Urobilinogen 0.2 (0-1) mg/dL Urine Leukocytes NEGATIVE (NEGATIVE) Urine WBC (Auto) NONE (0-5) /HPF Urine RBC (Auto) 0-2 (0-2) /HPF U Epithel Cells (Auto) Not Reportable Urine Bacteria (Auto) NONE (NEGATIVE) /HPF Urine RBC SMALL A (0-5) Harpal/ul Ur Culture Indicated? NO Urine Glucose NEGATIVE (NEGATIVE) mg/dL Influenza Type A Ag NEGATIVE (NEGATIVE) Influenza Type B Ag NEGATIVE (NEGATIVE) RSV (PCR) NEGATIVE (Negative) SARS-CoV-2 (PCR) NEGATIVE (NEGATIVE) 08/16/22 08/16/22 08/16/22 Range/Units 16:05 16:05 16:05 WBC (4.0-10.5) x10^3/uL RBC (4.1-5.6) x10^6/uL Hgb (12.5-18.0) g/dL Hct (42-50) % MCV (78-100) fL MCH (26-32) pg MCHC (32-36) g/dL RDW (11.5-14.0) % Plt Count (150-450) x10^3/uL MPV (7.5-11.0) fL Gran % (36.0-66.0) % Immature Gran % (Auto) (0.00-0.4) % Nucleat RBC Rel Count (0.00-0.1) % Eos # (Auto) (0-0.5) x10^3/uL Immature Gran # (Auto) (0.00-0.03) x10^3u/L Absolute Lymphs (auto) (1.0-4.6) x10^3/uL Absolute Monos (auto) (0.0-1.3) x10^3/uL Absolute Nucleated RBC (0.00-0.01) x10^3u/L Lymphocytes % (24.0-44.0) % Monocytes % (0.0-12.0) % Eosinophils % (0.00-5.0) % Basophils % (0.0-0.4) % Absolute Granulocytes (1.4-6.9) x10^3/uL Basophils # (0-0.4) x10^3/uL PT 11.5 (9.4-12.5) SECONDS INR 1.09 (0.8-3.0) APTT 29.6 (25.1-36.5) SECONDS D-Dimer 0.52 H (0.0-0.50) mg/L Sodium (137-145) mmol/L Potassium (3.5-5.1) mmol/L Chloride (98-107) mmol/L Carbon Dioxide (22-30) mmol/L Anion Gap (5-15) MEQ/L BUN (9-20) mg/dL Creatinine (0.66-1.25) mg/dL Estimated GFR ML/MIN Glucose (74-106) mg/dL Lactic Acid (0.4-2.0) Calcium (8.4-10.2) mg/dL Total Bilirubin (0.2-1.3) mg/dL AST (17-59) U/L ALT (0-50) U/L Alkaline Phosphatase (38-126) U/L Troponin I < 0.012 (0.000-0.034) ng/mL NT-Pro-B Natriuret Pep (0-900) pg/mL Serum Total Protein (6.3-8.2) g/dL Albumin (3.5-5.0) g/dL Thyroxine (T4) (5.53-10.96) ug/dL TSH 3rd Generation (0.47-4.68) mIU/L Urinalys Dipstick Clnc Urine Color (YELLOW) Urine Appearance (CLEAR) Urine pH (5-6) Ur Specific Reading (1.005-1.025) POC Urine Protein Conf (Negative) Urine Ketones (NEGATIVE) Urine Nitrite (NEGATIVE) Urine Bilirubin (NEGATIVE) Urine Urobilinogen (0-1) mg/dL Urine Leukocytes (NEGATIVE) Urine WBC (Auto) (0-5) /HPF Urine RBC (Auto) (0-2) /HPF U Epithel Cells (Auto) Urine Bacteria (Auto) (NEGATIVE) /HPF Urine RBC (0-5) Harpal/ul Ur Culture Indicated? Urine Glucose (NEGATIVE) mg/dL Influenza Type A Ag (NEGATIVE) Influenza Type B Ag (NEGATIVE) RSV (PCR) (Negative) SARS-CoV-2 (PCR) (NEGATIVE) 08/16/22 08/16/22 Range/Units 16:05 16:05 WBC 13.8 H (4.0-10.5) x10^3/uL RBC 5.11 (4.1-5.6) x10^6/uL Hgb 16.8 (12.5-18.0) g/dL Hct 48.2 (42-50) % MCV 94.3 (78-100) fL MCH 32.9 H (26-32) pg MCHC 34.9 (32-36) g/dL RDW 12.2 (11.5-14.0) % Plt Count 306 (150-450) x10^3/uL MPV 9.7 (7.5-11.0) fL Gran % 76.3 H (36.0-66.0) % Immature Gran % (Auto) 0.4 (0.00-0.4) % Nucleat RBC Rel Count 0.0 (0.00-0.1) % Eos # (Auto) 0 (0-0.5) x10^3/uL Immature Gran # (Auto) 0.06 H (0.00-0.03) x10^3u/L Absolute Lymphs (auto) 2.27 (1.0-4.6) x10^3/uL Absolute Monos (auto) 0.88 (0.0-1.3) x10^3/uL Absolute Nucleated RBC 0.00 (0.00-0.01) x10^3u/L Lymphocytes % 16.5 L (24.0-44.0) % Monocytes % 6.4 (0.0-12.0) % Eosinophils % 0.0 (0.00-5.0) % Basophils % 0.4 (0.0-0.4) % Absolute Granulocytes 10.52 H (1.4-6.9) x10^3/uL Basophils # 0.05 (0-0.4) x10^3/uL PT (9.4-12.5) SECONDS INR (0.8-3.0) APTT (25.1-36.5) SECONDS D-Dimer (0.0-0.50) mg/L Sodium 137 (137-145) mmol/L Potassium 4.2 (3.5-5.1) mmol/L Chloride 105 (98-107) mmol/L Carbon Dioxide 19 L (22-30) mmol/L Anion Gap 17.1 H (5-15) MEQ/L BUN 12 (9-20) mg/dL Creatinine 0.69 (0.66-1.25) mg/dL Estimated GFR > 60.0 ML/MIN Glucose 116 H (74-106) mg/dL Lactic Acid (0.4-2.0) Calcium 10.1 (8.4-10.2) mg/dL Total Bilirubin 1.10 (0.2-1.3) mg/dL AST 22 (17-59) U/L ALT 21 (0-50) U/L Alkaline Phosphatase 67 (38-126) U/L Troponin I (0.000-0.034) ng/mL NT-Pro-B Natriuret Pep 62.6 (0-900) pg/mL Serum Total Protein 7.9 (6.3-8.2) g/dL Albumin 5.1 H (3.5-5.0) g/dL Thyroxine (T4) (5.53-10.96) ug/dL TSH 3rd Generation (0.47-4.68) mIU/L Urinalys Dipstick Clnc Urine Color (YELLOW) Urine Appearance (CLEAR) Urine pH (5-6) Ur Specific Reading (1.005-1.025) POC Urine Protein Conf (Negative) Urine Ketones (NEGATIVE) Urine Nitrite (NEGATIVE) Urine Bilirubin (NEGATIVE) Urine Urobilinogen (0-1) mg/dL Urine Leukocytes (NEGATIVE) Urine WBC (Auto) (0-5) /HPF Urine RBC (Auto) (0-2) /HPF U Epithel Cells (Auto) Urine Bacteria (Auto) (NEGATIVE) /HPF Urine RBC (0-5) Harpal/ul Ur Culture Indicated? Urine Glucose (NEGATIVE) mg/dL Influenza Type A Ag (NEGATIVE) Influenza Type B Ag (NEGATIVE) RSV (PCR) (Negative) SARS-CoV-2 (PCR) (NEGATIVE) - Progress Progress Note: 08/16/22 22:02 Pt w leukocytos but neg UA/Neg CXR/CTA of chest wo PE-infiltrate/CT abdomen- pelvis neg for acute pathology/Fluvid neg/troponin neg x2. Blood cultures x2/1gm IV Rocephin given Counseled pt/family regarding: lab results, diagnosis, need for follow-up, rad results - Departure Departure Disposition: Home Clinical Impression: URI (upper respiratory infection), Leukocytosis Condition: Stable Critical Care Time: No Referrals: CHRISTINE INIGUEZ MD [Primary Care Provider] - Follow up/PCP as directed Instructions: Acute Bronchitis, Adult (DC), Chest Pain (DC) Additional Instructions: Follow up with your family MD next week Start Doxycycline twice a day for 1 week Return to ER for temperature greater than 100.5, worsening chest pain, or increasing shortness of breath Prescriptions: Doxycycline Monohydrate 100 mg PO BID 7 Days #14 cap
[2022-08-16 16:25] LABS: INR 1.09 (0.8-3.0); PROTIME 11.5 SECONDS (9.4-12.5); PTT 29.6 SECONDS (25.1-36.5)
[2022-08-16 16:31] LABS: ALBUMIN 5.1 g/dL (3.5-5.0); ALKALINE PHOSPHATASE 67 U/L (38-126); ANION GAP 17.1 MEQ/L (5-15); BLOOD UREA NITROGEN 12 mg/dL (9-20); CHLORIDE 105 mmol/L (98-107); Calcium 10.1 mg/dL (8.4-10.2); Carbon Dioxide 19 mmol/L (22-30); Creatinine 1 0.69 mg/dL (0.66-1.25); EST GLOMERULAR FILTRATION RATE > 60.0 ML/MIN; Glucose 116 mg/dL (74-106); NT PRO BNP 62.6 pg/mL (0-900); Potassium 4.2 mmol/L (3.5-5.1); SGOT/AST 22 U/L (17-59); SGPT/ALT 21 U/L (0-50); SODIUM 137 mmol/L (137-145); Total Protein 7.9 g/dL (6.3-8.2)
[2022-08-16 16:45] LABS: INFLUENZA A NEGATIVE (NEGATIVE); INFLUENZA B NEGATIVE (NEGATIVE); RESPIRATORY SYNCTIAL VIRUS NEGATIVE (Negative); SARS-CoV-2 Xpert Express NEGATIVE (NEGATIVE)
[2022-08-16 17:29] LABS: RBC 0-2 /HPF (0-2)
[2022-08-16 17:31] LABS: Appearance CLEAR (CLEAR); Bilirubin NEGATIVE (NEGATIVE); Dipstick done @ ? MAIN LAB; Glucose NEGATIVE (NEGATIVE); Ketones SMALL-15 (NEGATIVE); Nitrite NEGATIVE (NEGATIVE); Protein,Urine Dip NEGATIVE (Negative); RBC SMALL Ery/ul (0-5); Urobilinogen 0.2 mg/dL (0-1)
[2022-08-16 17:32] LABS: Urine Cultured Indicated? NO
--- NOTE | 2022-08-16 18:41 | XRAY ---
Indication: Chest pain. Elevated d-dimer. Multiple contiguous axial images obtained through the chest using 80 cc Isovue 370 contrast and PE protocol. Comparison: None Good opacification of the pulmonary arteries to include the lobar and segmental branches. Mild respiration artifact limits evaluation of both lower lobe pulmonary arteries. No obvious pulmonary embolus. Heart not enlarged with prominent epicardiac fat. Aorta minimally arteriosclerotic without aneurysm/dissection. No pathologic mediastinal/hilar lymphadenopathy. Lungs demonstrates mild pulmonary emphysema, tiny inferior right upper lobe calcified granuloma, and mild left base subsegmental atelectasis/scarring. No suspicious pulmonary mass, infiltrate, effusion, or pneumothorax. Bony thorax intact with minimal degenerative changes throughout the spine. Limited upper abdomen demonstrates fatty liver and a few subcentimeter hepatic cysts. Impression: 1. Mild respiration artifact. No obvious pulmonary embolus. 2. Mild pulmonary emphysema, left base subsegmental atelectasis/scarring, fatty liver, degenerative spondylosis, hepatic cysts, and old granulomatous disease.
--- NOTE | 2022-08-16 20:16 | XRAY ---
Indication: Pain. Leukocytosis. Lethargy. Multiple contiguous axial images obtained through the abdomen and pelvis without contrast. Comparison: None CT chest/PE study performed earlier in the day. Noncontrasted stomach and bowel loops nonobstructed with normal appendix. Mild scattered colonic diverticulosis without diverticulitis. Mild distended gallbladder without gallstones or biliary distention. A few bilateral renal cysts, largest 2.8 cm right mid pole. Liver demonstrates a few tiny cysts, largest 8mm near the dome of the diaphragm. No free fluid/air. Remaining liver, gallbladder, pancreas, spleen, adrenal glands, kidneys, ureters, and bladder are unremarkable. Mild scattered aortoiliac calcifications without AAA. Osseous structures intact. Small fatty left inguinal hernia. Impression: 1. Colonic diverticulosis, bilateral renal cysts, tiny hepatic cysts, mild arteriosclerotic disease, and small fatty left inguinal hernia. 2. Remaining CT abdomen/pelvis without contrast exam is negative.
[2022-08-16] MEDS ORDERED: ROCEPHIN 1 Gm-D5w 50 ml Bag** 1 G/50 ML IVPB IV STA (20:54)
[2022-08-16] MEDS ORDERED: ROCEPHIN 1 Gm-D5w 50 ml Bag** 1 G/50 ML IVPB IV ONE (21:12)
[2022-08-16 21:26] VITALS: BP 151/90; PULSE 69
[2022-08-16 22:05] VITALS: O2SAT 99
== END 2022-08-16 21:44 | disposition home or self-care (01) ==
LOC: ED 15:49
DX: J06.9 Acute upper respiratory infection, unspecified (principal); D72.829 Elevated white blood cell count, unspecified; R07.9 Chest pain, unspecified; R05.9 Cough, unspecified; R11.0 Nausea; I10 Essential (primary) hypertension; Z79.899 Other long term (current) drug therapy; Z72.0 Tobacco use
CPT/HCPCS: 0241U; 36415; 71045; 71260; 74176; 80053; 81015; 83605; 83880; 84436; 84443; 84484; 85025; 85379; 85610; 85730; 87040; 93005; 99284; J0696; A9270-GY

== ENCOUNTER 2022-10-23 05:51 | Day surgery (SDC) | payer BC ==
[2022-10-23] MEDS ORDERED: Lactated Ringers 1,000 ML IV SCH (06:30)
[2022-10-23] MEDS ORDERED: DIPRIVAN 200 MG/20 ML IV ONE (07:33)
[2022-10-23] MEDS ORDERED: Xylocaine-Mpf 2% 5 Ml Vial ONE (07:33)
[2022-10-23] MEDS ORDERED: Versed 2 MG/2 ML Injection ONE (07:34)
[2022-10-23 08:45] VITALS: PULSE 81; O2SAT 97
[2022-10-23 08:54] VITALS: BP 116/83
--- NOTE | 2022-10-23 14:46 | OP ---
SURGERY DATE/TIME: 10/23/2022 0736 PREOPERATIVE DIAGNOSIS: Screening colonoscopy. POSTOPERATIVE DIAGNOSIS: Normal colon. PROCEDURE: Colonoscopy. SURGEON: Tom Galaviz M.D. ANESTHESIA: MAC by Tiago Cardona CRNA. ESTIMATED BLOOD LOSS: None. SPECIMENS: None. DESCRIPTION OF PROCEDURE: After informed written consent was obtained, the patient was taken to the endoscopy suite. He was placed in left lateral decubitus position and anesthesia was titrated to desired level of consciousness. Digital rectal exam showed normal sphincter tone and no internal lesions. The scope was inserted into the rectum and sequentially the entire colonic mucosa was traversed. The level of cecum was reached and verified with direct visualization of the ileocecal valve. Upon withdrawal careful mucosal inspection revealed no gross abnormalities. Prep was noted to be good. Prior to withdrawal retroflexion was performed and showed no internal lesions. The scope was removed and the patient was transferred to the recovery room in good condition.
== END 2022-10-23 08:56 | disposition home or self-care (01) ==
LOC: SDC 05:51
PROVIDERS: ATTEND Family Medicine
DX: Z12.11 Encounter for screening for malignant neoplasm of colon (principal)
CPT/HCPCS: J2250; J2704

== ENCOUNTER 2023-01-14 19:25 | Emergency (ER) | payer BC ==
--- NOTE | 2023-01-14 19:41 | ERPHSYRPT ---
- History of Present Illness Time Seen by Provider: 01/14/23 19:41 Source: patient, family Exam Limitations: no limitations Physician History: This is a 62-year-old obese white male patient of Dr. Iniguez who states that he recalls a coughing spell prior to him falling down but does not recall much after that. His spouse was in the next room and just heard him fall but did not appreciate a coughing spell. Patients states that she found him on the ground and he was unresponsive for short interval of time. He then suddenly woke up completely awake alert and oriented wondering what happened. Patient arrived to the emergency department from home. He denies chest pain. He denies shortness of air. Patient did state that he had approximately 3-4 beers prior to this occurring. He has a history of hypertension, anxiety. He is a daily smoker of cigarettes. Patient's did supply independent information. She also stated that he was outside in the sun most of the day today. Timing/Duration: today Severity: mild Character of Deficits: none Deficits: no difficulties Baseline/Normal Cognition: alert 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 Current Cognition: alert 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 Baseline Gait: walks w/o assistance Associated Symptoms: denies symptoms Allergies/Adverse Reactions: No Known Drug Allergies Allergy (Verified 01/14/23 20:02) Home Medications: ALPRAZolam [Alprazolam] 0.5 mg PO DAILY 08/16/22 [History] Amlodipine Besylate [Norvasc] 2.5 mg PO DAILY 08/16/22 [History] Escitalopram Oxalate [Lexapro] 10 mg PO DAILY 10/22/22 [History] Hx Tetanus, Diphtheria Vaccination/Date Given: Yes Hx Influenza Vaccination/Date Given: Yes Hx Pneumococcal Vaccination/Date Given: Yes Travel Risk - International Travel Have you traveled outside of the country in past 3 weeks: No - Coronavirus Screening Are you exhibiting any of the following symptoms?: No Close contact with a COVID-19 positive Pt in past 14-21 Days: No - Vaccine Status Have you recieved a Covid-19 vaccination: Yes 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 - Vaccination Dates Date of 2cond Vaccination (if applicable): 2020 - Review of Systems Constitutional: No Symptoms Eyes: No Symptoms Ears, Nose, & Throat: No Symptoms Respiratory: No Symptoms Cardiac: No Symptoms Abdominal/Gastrointestinal: No Symptoms Genitourinary Symptoms: No Symptoms Musculoskeletal: No Symptoms Skin: No Symptoms Neurological: No Symptoms Psychological: No Symptoms Endocrine: No Symptoms Hematologic/Lymphatic: No Symptoms Immunological/Allergic: No Symptoms All Other Systems: Reviewed and Negative - Past Medical History Pertinent Past Medical History: Yes Neurological History: No Pertinent History ENT History: No Pertinent History Cardiac History: Hypertension Respiratory History: No Pertinent History Endocrine Medical History: No Pertinent History Musculoskeletal History: No Pertinent History GI Medical History: No Pertinent History History: No Pertinent History Psycho-Social History: No Pertinent History Male Reproductive Disorders: No Pertinent History - Past Surgical History Past Surgical History: No Neuro Surgical History: No Pertinent History Cardiac: No Pertinent History Respiratory: No Pertinent History Gastrointestinal: No Pertinent History Genitourinary: No Pertinent History Musculoskeletal: No Pertinent History Male Surgical History: No Pertinent History - Social History Smoking Status: Current every day smoker How long have you smoked: 30yrs Exposure to second hand smoke: Yes Drug Use: none Patient Lives Alone: No - Nursing Vital Signs Nursing Vital Signs: Initial Vital Signs Temperature 99.5 F 01/14/23 19:44 Pulse Rate 123 H 01/14/23 19:44 Respiratory Rate 16 01/14/23 19:44 Blood Pressure 138/80 01/14/23 19:44 O2 Sat by Pulse Oximetry 96 01/14/23 19:44 Pain Scale Pain Intensity 0 - Naomi Coma Scale Best Eye Response (Naomi): (4) open spontaneously Best Verbal Response ([place]): (5) oriented Best Motor Response (Naomi): (6) obeys commands [place] Total: 15 - Physical Exam General Appearance: no apparent distress, alert, obese Eye Exam: bilateral eye: normal inspection, PERRL, EOMI Ears, Nose, Throat Exam: normal ENT inspection, moist mucous membranes Neck Exam: normal inspection, non-tender, supple, full range of motion Respiratory: normal breath sounds, lungs clear, airway intact, No chest tendern ess, No respiratory distress Cardiovascular: tachycardia Gastrointestinal: soft, normal bowel sounds, No tenderness Rectal Exam: not done Back Exam: normal inspection, normal range of motion, No CVA tenderness, No vertebral tenderness Extremity Exam: normal inspection, normal range of motion, pelvis stable 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, 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, 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 Exam: normal hearing, normal speech, PERRL Coordination/Gait: normal finger to nose, normal gait, normal cerebellar function Motor/Sensory: no motor deficit, no sensory deficit, no pronator drift Skin Exam: normal color, warm, dry SpO2 Interpretation: normal O2 Delivery: Room Air - Course Nursing assessment & vital signs reviewed: Yes EKG Interpreted by Me: RATE ([id number]), Sinus Tach, NORMAL AXIS, NORMAL INTERVALS, NORMAL QRS, NORMAL ST-T, Other (No acute ischemic changes on today's twelve-lead EKG.) Ordered Tests: Active Orders 24 hr Category Date Time Status Clean Catch Urine Specimen STAT Care 01/14/23 19:41 Active EKG-ER Only STAT Care 01/14/23 19:41 Active IV Insertion STAT Care 01/14/23 19:41 Active POCT Glucose Check STAT Care 01/14/23 19:41 Active Pulse Oximetry (ED) STAT Care 01/14/23 19:41 Active HEAD WITHOUT CONTRAST [CT] Stat Exams 01/14/23 19:41 Taken CBC W DIFF Stat Lab 01/14/23 19:55 Completed CMP Stat Lab 01/14/23 19:55 Completed ETHYL ALCOHOL Stat Lab 01/14/23 19:55 Completed POCT GLUCOSE Stat Lab 01/14/23 19:59 Completed TROPONIN Q4H Lab 01/14/23 19:55 Completed TROPONIN Q4H Lab 01/15/23 00:45 Ordered TROPONIN Q4H Lab 01/15/23 04:45 Ordered UA W/RFX UR CULTURE Stat Lab 01/14/23 19:44 Completed Urine Triage Profile Stat Lab 01/14/23 19:44 Completed Medication Summary Generic Name Dose Route Start Last Admin Trade Name Freq PRN Reason Stop Dose Admin Ceftriaxone Sodium/Dextrose 1 g in 50 mls @ 100 mls/hr 01/14/23 21:20 01/14/23 21:24 Rocephin 1 Gm-D5w 50 Ml Bag IV 01/14/23 21:49 100 ml/hr STAT STA 100 mls/hr Administration Discontinued Medications Generic Name Dose Route Start Last Admin Trade Name Freq PRN Reason Stop Dose Admin Sodium Chloride 1,000 mls @ 999 mls/hr 01/14/23 20:39 01/14/23 20:41 Sodium Chloride 0.9% 1000 Ml IV 01/14/23 21:39 999 mls/hr .Q1H1M STA Administration Sodium Chloride Confirm 01/14/23 20:40 Sodium Chloride 0.9% 1000 Ml Administered 01/14/23 20:41 Dose 1,000 mls @ ud .ROUTE .STK-MED ONE Ceftriaxone Sodium/Dextrose Confirm 01/14/23 21:22 Rocephin 1 Gm-D5w 50 Ml Bag Administered 01/14/23 21:23 Dose 1 g in 50 mls @ ud IV .STK-MED ONE Lab/Rad Data: Laboratory Result Diagrams 01/14/23 19:55 01/14/23 19:55 Laboratory Results 01/14/23 01/14/23 01/14/23 Range/Units 19:59 19:55 19:55 WBC (4.0-10.5) x10^3/uL RBC (4.1-5.6) x10^6/uL Hgb (12.5-18.0) g/dL Hct (42-50) % MCV (78-100) fL MCH (26-32) pg MCHC (32-36) g/dL RDW (11.5-14.0) % Plt Count (150-450) x10^3/uL MPV (7.5-11.0) fL Gran % (36.0-66.0) % Immature Gran % (Auto) (0.00-0.4) % Nucleat RBC Rel Count (0.00-0.1) % Eos # (Auto) (0-0.5) x10^3/uL Immature Gran # (Auto) (0.00-0.03) x10^3u/L Absolute Lymphs (auto) (1.0-4.6) x10^3/uL Absolute Monos (auto) (0.0-1.3) x10^3/uL Absolute Nucleated RBC (0.00-0.01) x10^3u/L Lymphocytes % (24.0-44.0) % Monocytes % (0.0-12.0) % Eosinophils % (0.00-5.0) % Basophils % (0.0-0.4) % Absolute Granulocytes (1.4-6.9) x10^3/uL Basophils # (0-0.4) x10^3/uL Sodium 137 (137-145) mmol/L Potassium 3.9 (3.5-5.1) mmol/L Chloride 104 (98-107) mmol/L Carbon Dioxide 19 L (22-30) mmol/L Anion Gap 17.6 H (5-15) MEQ/L BUN 19 (9-20) mg/dL Creatinine 0.86 (0.66-1.25) mg/dL Estimated GFR > 60.0 ML/MIN Glucose 177 H (74-106) mg/dL POC Glucometer 165 H (74 to 106) mg/dL Calcium 8.8 (8.4-10.2) mg/dL Total Bilirubin 0.60 (0.2-1.3) mg/dL AST 22 (17-59) U/L ALT 20 (0-50) U/L Alkaline Phosphatase 61 (38-126) U/L Troponin I < 0.012 (0.000-0.034) ng/mL Serum Total Protein 7.3 (6.3-8.2) g/dL Albumin 4.4 (3.5-5.0) g/dL Urine Color (Yellow) Urine Appearance (Clear) Urine pH (4.6-8.0) Ur Specific [place] (1.005-1.030) Urine Protein (Negative) Urine Glucose (UA) (Negative) mg/dL Urine Ketones (Negative) Urine Blood (Negative) Urine Nitrite (Negative) Urine Bilirubin (Negative) Urine Urobilinogen (0.2) mg/dL Ur Leukocyte Esterase (Negative) U Hyaline Cast (Auto) (0-2) /LPF Urine Microscopic RBC (0-5) /HPF Urine Microscopic WBC (0-5) /HPF Ur Epithelial Cells (None Seen) /HPF Urine Bacteria (None Seen) /HPF Urine Culture Reflexed (NO) Urine Opiates Level (NEGATIVE) Ur Methadone (NEGATIVE) Urine Barbiturates (NEGATIVE) Ur Phencyclidine (PCP) (NEGATIVE) Urine Amphetamine (NEGATIVE) U Benzodiazepine Level (NEGATIVE) Urine Cocaine (NEGATIVE) Urine Marijuana (THC) (NEGATIVE) Ethyl Alcohol 24 H (0-10) mg/dL 01/14/23 01/14/23 01/14/23 Range/Units 19:55 19:44 19:44 WBC 10.7 H (4.0-10.5) x10^3/uL RBC 4.30 (4.1-5.6) x10^6/uL Hgb 14.2 (12.5-18.0) g/dL Hct 42.6 (42-50) % MCV 99.1 (78-100) fL MCH 33.0 H (26-32) pg MCHC 33.3 (32-36) g/dL RDW 12.6 (11.5-14.0) % Plt Count 223 (150-450) x10^3/uL MPV 10.0 (7.5-11.0) fL Gran % 82.3 H (36.0-66.0) % Immature Gran % (Auto) 0.4 (0.00-0.4) % Nucleat RBC Rel Count 0.0 (0.00-0.1) % Eos # (Auto) 0 (0-0.5) x10^3/uL Immature Gran # (Auto) 0.04 H (0.00-0.03) x10^3u/L Absolute Lymphs (auto) 1.20 (1.0-4.6) x10^3/uL Absolute Monos (auto) 0.62 (0.0-1.3) x10^3/uL Absolute Nucleated RBC 0.00 (0.00-0.01) x10^3u/L Lymphocytes % 11.3 L (24.0-44.0) % Monocytes % 5.8 (0.0-12.0) % Eosinophils % 0.0 (0.00-5.0) % Basophils % 0.2 (0.0-0.4) % Absolute Granulocytes 8.77 H (1.4-6.9) x10^3/uL Basophils # 0.02 (0-0.4) x10^3/uL Sodium (137-145) mmol/L Potassium (3.5-5.1) mmol/L Chloride (98-107) mmol/L Carbon Dioxide (22-30) mmol/L Anion Gap (5-15) MEQ/L BUN (9-20) mg/dL Creatinine (0.66-1.25) mg/dL Estimated GFR ML/MIN Glucose (74-106) mg/dL POC Glucometer (74 to 106) mg/dL Calcium (8.4-10.2) mg/dL Total Bilirubin (0.2-1.3) mg/dL AST (17-59) U/L ALT (0-50) U/L Alkaline Phosphatase (38-126) U/L Troponin I (0.000-0.034) ng/mL Serum Total Protein (6.3-8.2) g/dL Albumin (3.5-5.0) g/dL Urine Color Yellow (Yellow) Urine Appearance Clear (Clear) Urine pH 5.0 (4.6-8.0) Ur Specific [place] 1.020 (1.005-1.030) Urine Protein Negative (Negative) Urine Glucose (UA) Negative (Negative) mg/dL Urine Ketones Trace A (Negative) Urine Blood Small A (Negative) Urine Nitrite Negative (Negative) Urine Bilirubin Negative (Negative) Urine Urobilinogen 1.0 A (0.2) mg/dL Ur Leukocyte Esterase Negative (Negative) U Hyaline Cast (Auto) NONE SEEN (0-2) /LPF Urine Microscopic RBC 0-2 (0-5) /HPF Urine Microscopic WBC 0-2 (0-5) /HPF Ur Epithelial Cells None Seen (None Seen) /HPF Urine Bacteria None Seen (None Seen) /HPF Urine Culture Reflexed NO (NO) Urine Opiates Level NEGATIVE (NEGATIVE) Ur Methadone NEGATIVE (NEGATIVE) Urine Barbiturates NEGATIVE (NEGATIVE) Ur Phencyclidine (PCP) NEGATIVE (NEGATIVE) Urine Amphetamine NEGATIVE (NEGATIVE) U Benzodiazepine Level POSITIVE (NEGATIVE) Urine Cocaine NEGATIVE (NEGATIVE) Urine Marijuana (THC) NEGATIVE (NEGATIVE) Ethyl Alcohol (0-10) mg/dL - Progress Progress: improved Progress Note: 01/14/23 21:22 CAT scan of the head without contrast shows new right frontal/ethmoid/maxillary sinus disease. Otherwise normal head CT Counseled pt/family regarding: lab results, diagnosis, need for follow-up, rad results Medical Desision Making - Independent Historian Additional History obtained from: Spouse - Diagnostic Testing Radiological Interpretation: Reviewed by me, Teleradiologist Report - Risk of complications The pt has a mod risk of morbidity or mortality based on: Need for prescription drug management - Departure Departure Disposition: Home Clinical Impression: Syncopal episodes, Sinusitis Condition: Stable Critical Care Time: No Referrals: CHRISTINE INIGUEZ MD [Primary Care Provider] - Follow up/PCP as directed Instructions: Sinusitis, Adult (DC), Syncope (Fainting) (DC) Additional Instructions: Drink plenty of nonalcohol fluids. Avoid excess exposure to heat. Take ant ibiotics as prescribed. Take your other medication as prescribed. Follow-up with your primary care provider for further evaluation and management. Prescriptions: Azithromycin 250 mg [Zithromax 250 MG TABLET] 250 mg PO ZPACK #6 tablet
[2023-01-14 20:06] LABS: Absolute Neutrophil Ct (ANC) 8.77 x10^3/uL (1.4-6.9); BASOPHIL % 0.2 % (0.0-0.4); Basophil (Absolute #) 0.02 x10^3/uL (0-0.4); Eosinophil (Absolute #) 0 x10^3/uL (0-0.5); Hematocrit 42.6 % (42-50); Hemoglobin 14.2 g/dL (12.5-18.0); IMMATURE GRAN # 0.04 x10^3u/L (0.00-0.03); IMMATURE GRAN % 0.4 % (0.00-0.4); Lymphocytes % 11.3 % (24.0-44.0); Mean Cell Volume 99.1 fL (78-100); Mean Corpuscular Hgb Concent. 33.3 g/dL (32-36); Monocyte (Absolute #) 0.62 x10^3/uL (0.0-1.3); Monocytes % 5.8 % (0.0-12.0); Neutrophil % 82.3 % (36.0-66.0); Platelet Count 223 x10^3/uL (150-450); Red Cell Distribution Width 12.6 % (11.5-14.0); White Blood Count 10.7 x10^3/uL (4.0-10.5)
[2023-01-14 20:10] LABS: Appearance Clear (Clear); Bacteria None Seen /HPF (None Seen); Bilirubin Negative (Negative); Blood Small (Negative); Epithelial Cells None Seen /HPF (None Seen); Glucose, Urine Negative (Negative); Hyaline Casts NONE SEEN /LPF (0-2); Ketones Trace (Negative); Leukocyte Esterase Negative (Negative); Nitrite Negative (Negative); Protein,Urine Dip Negative (Negative); RBC 0-2 /HPF (0-5); WBC 0-2 /HPF (0-5)
[2023-01-14 20:11] LABS: ADD URINE CULTURE? NO (NO)
[2023-01-14 20:19] LABS: Amphetamine,Urine NEGATIVE (NEGATIVE); Barbiturate,Urine NEGATIVE (NEGATIVE); Benzodiazepine,Urine POSITIVE (NEGATIVE); Cocaine,Urine NEGATIVE (NEGATIVE); Methadone,Urine NEGATIVE (NEGATIVE); Opiate,Urine NEGATIVE (NEGATIVE); THC,Urine NEGATIVE (NEGATIVE)
[2023-01-14 20:19] LABS: ALBUMIN 4.4 g/dL (3.5-5.0); ALKALINE PHOSPHATASE 61 U/L (38-126); ANION GAP 17.6 MEQ/L (5-15); BLOOD UREA NITROGEN 19 mg/dL (9-20); CHLORIDE 104 mmol/L (98-107); Calcium 8.8 mg/dL (8.4-10.2); Carbon Dioxide 19 mmol/L (22-30); Creatinine 1 0.86 mg/dL (0.66-1.25); EST GLOMERULAR FILTRATION RATE > 60.0 ML/MIN; ETHYL ALCOHOL 24 mg/dL (0-10); Glucose 177 mg/dL (74-106); Potassium 3.9 mmol/L (3.5-5.1); SGOT/AST 22 U/L (17-59); SGPT/ALT 20 U/L (0-50); SODIUM 137 mmol/L (137-145); Total Protein 7.3 g/dL (6.3-8.2)
[2023-01-14] MEDS ORDERED: Sodium Chloride 0.9% 1000 ML 1,000 ML IV STA (20:39)
[2023-01-14] MEDS ORDERED: Sodium Chloride 0.9% 1000 ML 1,000 ML ONE (20:40)
[2023-01-14] MEDS ORDERED: ROCEPHIN 1 Gm-D5w 50 ml Bag** 1 G/50 ML IVPB IV STA (21:20)
[2023-01-14] MEDS ORDERED: ROCEPHIN 1 Gm-D5w 50 ml Bag** 1 G/50 ML IVPB IV ONE (21:22)
[2023-01-14 21:32] VITALS: BP 116/87; PULSE 104; O2SAT 97
[2023-01-14 21:36] LABS: PCP,Urine NEGATIVE (NEGATIVE)
--- NOTE | 2023-01-15 08:39 | XRAY ---
Indication: Syncope. No known injury. Multiple contiguous axial images obtained through the head without contrast. Comparison: July 14, 2020 Normal appearing brain parenchyma, ventricles, and bony calvarium for patient's age. New mild/moderate mucosal thickening right frontal/right ethmoid/right maxillary sinuses. Mastoid air cells are clear. Impression: New paranasal sinus disease. Remaining CT head without contrast exam is normal.
== END 2023-01-14 21:49 | disposition home or self-care (01) ==
LOC: ED 19:25
DX: R55 Syncope and collapse (principal); J32.9 Chronic sinusitis, unspecified; I10 Essential (primary) hypertension; Z79.899 Other long term (current) drug therapy; Z72.0 Tobacco use
CPT/HCPCS: 36000; 36415; 70450; 80053; 80307; 81001; 82077; 82947; 84484; 85025; 93005; 94760; 96360; 96365; 99284; J0696